=== PATIENT | male | born 1975 | race American Indian/Alaskan Native ===

== ENCOUNTER 2019-02-24 09:38 | Day surgery (SDC) | payer BC, OTHER ==
[~2019-02-24 09:38] MED LIST: Lactated Ringers 1,000 ML IV SCH
--- NOTE | 2019-02-24 10:21 | PCM.PREANE ---
Preanesthetic Assessment - Anesthesia/Transfusion/Family Hx Anesthesia History: Prior Anesthesia Without Reaction Family History of Anesthesia Reaction: No Transfusion History: No Prior Transfusion(s) Intubation History: Unknown - Review of Systems General: No Symptoms Pulmonary: No Symptoms Cardiovascular: No Symptoms Gastrointestinal: Abdominal Pain Neurological: No Symptoms Other: Reports: None - Physical Assessment Vital Signs: Last Vital Signs Temp 36.3 C 02/24/19 10:00 Pulse 93 02/24/19 10:00 Resp 20 02/24/19 10:00 BP 144/82 H 02/24/19 10:00 Pulse Ox 93 L 02/24/19 10:00 Height: 6 ft Weight: 148.778 kg ASA Class: 3 Mental Status: Alert & Oriented x3 Airway Class: Mallampati = 3 Dentition: Reports: Normal Dentition Thyro-Mental Finger Breadths: 3 Mouth Opening Finger Breadths: 2 ROM/Head Extension: Full Lungs: Clear to Auscultation, Normal Respiratory Effort Cardiovascular: Regular Rate, Regular Rhythm - Allergies Allergies/Adverse Reactions: Allergies Allergy/AdvReac Type Severity Reaction Status Date / Time ampicillin Allergy Cannot Verified 02/19/19 10:35 Remember - Blood Blood Available: No - Anesthesia Plan Pre-Op Medication Ordered: None - Acknowledgements Anesthesia Type Planned: MAC Pt an Appropriate Candidate for the Planned Anesthesia: Yes Alternatives and Risks of Anesthesia Discussed w Pt/Guardian: Yes Pt/Guardian Understands and Agrees with Anesthesia Plan: Yes PreAnesthesia Questionnaire HEENT History: Reports: None Cardiovascular History: Reports: High Cholesterol, Hypertension Respiratory History: Reports: Asthma (mild), Sleep Apnea (uses CPAP mask at night) Gastrointestinal History: Reports: GERD, Hemorrhoids Genitourinary History: Reports: None Musculoskeletal History: Reports: None Neurological History: Reports: Other (See Below) (hunt's palsy at present) Psychiatric History: Reports: None Endocrine/Metabolic History: Reports: Diabetes, Type II, Hypothyroidism, Obesity /BMI 30+ (BMI 44.5) Hematologic History: Reports: Anemia Immunologic History: Reports: None Oncologic (Cancer) History: Reports: None Dermatologic History: Reports: Eczema - Past Surgical History Head Surgeries/Procedures: Reports: None HEENT Surgical History: Reports: Adenoidectomy Cardiovascular Surgical History: Reports: None Respiratory Surgical History: Reports: None GI Surgical History: Reports: EGD Male Surgical History: Reports: None Endocrine Surgical History: Reports: None Neurological Surgical History: Reports: None Musculoskeletal Surgical History: Reports: None Oncologic Surgical History: Reports: None - SUBSTANCE USE Smoking Status *Q: Never Smoker Recreational Drug Use History: No - HOME MEDS Home Medications: Home Meds Losartan Potassium 50 mg PO DAILY 04/09/16 [History] Omeprazole 20 mg PO BID 04/09/16 [History] Albuterol Sulfate [Albuterol Sulfate Hfa] 1 - 2 puff INH ASDIRECTED PRN [History] Albuterol/Ipratropium [DuoNeb 3.0-0.5 MG/3 ML] 1 dose NEB ASDIRECTED PRN [History] Amitriptyline [Elavil] 25 mg PO BEDTIME PRN 02/19/19 [History] Levothyroxine Sodium [Unithroid] 50 mcg PO DAILY 02/19/19 [History] Mometasone/Formoterol [Dulera 200-5 MCG] 2 puff INH BID 02/19/19 [History] Montelukast Sodium 10 mg PO BEDTIME 02/19/19 [History] Simvastatin 20 mg PO DAILY 02/19/19 [History] Vilazodone Hydrochloride [Viibryd] 5 mg PO DAILY 02/19/19 [History] - CURRENT (IN HOUSE) MEDS Current Meds: Current Medications Lactated Ringer's (Ringers, Lactated) 1,000 mls @ 125 mls/hr IV ASDIRECTED CORINA Last Admin: 02/24/19 10:10 Dose: 125 mls/hr
[2019-02-24 10:45] VITALS: BP 144/82
[2019-02-24] MEDS ORDERED: Glycopyrrolate 0.2 MG/ML SDV ONE (10:46)
[2019-02-24] MEDS ORDERED: Midazolam 1 MG/ML 2 ML SDV ONE (10:46)
[2019-02-24] MEDS ORDERED: Propofol 200 MG/20 ML SDV ONE (10:46)
== END 2019-02-24 12:45 ==
LOC: MW.SDS 09:38
PROVIDERS: ATTEND Surgery
DX: D64.9 Anemia, unspecified (principal); I10 Essential (primary) hypertension; E11.9 Type 2 diabetes mellitus without complications; E78.00 Pure hypercholesterolemia, unspecified; E03.9 Hypothyroidism, unspecified; J45.909 Unspecified asthma, uncomplicated; K21.9 Gastro-esophageal reflux disease without esophagitis; G47.30 Sleep apnea, unspecified; Z88.0 Allergy status to penicillin; Z99.89 Dependence on other enabling machines and devices; Z53.29 Procedure and treatment not carried out because of patient's decision for other reasons; Z79.899 Other long term (current) drug therapy
CPT/HCPCS: J3490; J7120; 82962; J2250; J2704